=== PATIENT | male | born 1930 | race Caucasian/White ===

== ENCOUNTER 2021-08-11 17:44 | Inpatient (IN) | payer MEDICARE, BC ==
[~2021-08-11] VITALS: Ht 180.3 cm; Wt 83.6 kg
[2021-08-11 18:30] VITALS: BP 148/83
[2021-08-11] MEDS ORDERED: ondansetron/PF 4mg/2ml inj IV PRN (19:30)
[2021-08-11] MEDS ORDERED: magnesium 2GM in 50ml NS 50 ML IV PRN (19:30)
[2021-08-11] MEDS ORDERED: magnesium 4gm in 100ml NS 100 ML IV PRN (19:30)
[2021-08-11] MEDS ORDERED: HYDROcodone/acetaminophen 10/325mg tab PO PRN (19:30)
[2021-08-11] MEDS ORDERED: acetaminophen 325mg tablet PO PRN ×2 (19:30)
[2021-08-11] MEDS ORDERED: magnesium Cl slow-release 64mg tablet PO PRN (19:30)
[2021-08-11] MEDS ORDERED: morphine 2 MG/ML inj. syringe IV PRN ×2 (19:30)
[2021-08-11] MEDS ORDERED: potassium Cl 20 mEq SR tablet PO PRN ×2 (19:30)
[2021-08-11] MEDS ORDERED: potassium CL 10mEq/100ml bag 100 ML IV PRN (19:30)
[2021-08-11] MEDS ORDERED: PERFLUTREN PROTEIN-A MICROSPHR (Optison) 0.22 MG/ML 3ML VIAL IV ONE (19:40)
[2021-08-11] MEDS: ALBUTEROL INHALER 1 PUFF/90 MCG INHALER IH SCH ×2 (20:00→22:51)
[2021-08-11] MEDS: K and/or MAG REPLACEMENT MC SCH (20:00)
[2021-08-11] MEDS: normal saline 1000ml 1,000 ML IV SCH (20:02)
[2021-08-11] MEDS ORDERED: PERFLUTREN PROTEIN-A MICROSPHR (Optison) 0.22 MG/ML 3ML VIAL IV PRN (20:20)
[2021-08-11] MEDS ORDERED: APIX2.5T PO (20:56)
[2021-08-11] MEDS ORDERED: LOSA50TA64 PO (20:56)
[2021-08-11] MEDS ORDERED: COLC0.6T72 PO (20:56)
[2021-08-11] MEDS ORDERED: AMLO10TA13 PO (20:56)
[2021-08-11] MEDS ORDERED: LEVO150T8 PO (20:56)
[2021-08-11] MEDS ORDERED: FAMO20TA8 PO (20:56)
[2021-08-11] MEDS ORDERED: FINA5TAB11 PO (20:56)
[2021-08-11] MEDS ORDERED: temazepam 15mg capsule PO PRN (21:00)
[2021-08-11] MEDS: nicotine 14mg patch - 24hr TD SCH (21:12)
[2021-08-11] MEDS: dexamethasone 4mg/ml inj IV SCH (21:13)
[2021-08-11] MEDS ORDERED: famotidine 20mg tablet PO PRN (21:45)
[2021-08-11 22:00] VITALS: BP 124/90
[2021-08-11] MEDS ORDERED: LIDOcaine 2% 10ml TOPICAL JELLY (Urojet) TP ONE (22:00)
--- NOTE | 2021-08-11 22:00 | NUR ---
Placed fr 16 f/c with concentrated yellow urine return. Pt. tolerated the procedure with no incident-F/c draining to gravity. Addendum: 08/12/21 at 0040 by Angela Jhaveri RN Amended: Links added.
[2021-08-11 22:52] LABS: ABG BASE EXCESS 1.2 mmol/L (-2.0-2.0); ABG HCO3 26.6 mmol/L (22.0-26.0); ABG OXYGEN SATURATION 89.6 % (94-97); ABG PCO2 (T) 44.5 mmHg (35.0-48.0); ABG PO2 (T) 57.9 mmHg (75.0-100.0); ALLEN'S TEST POSITIVE; FCOHb 1.7 % (0.0-3.9); FLOW 8 L/min; FMetHb 0.3 % (0.0-1.5); FO2Hb 87.8 % (94-97); PATIENT TEMPERATURE 36.9; TOTAL HEMOGLOBIN 14.6 G/dl (14.0-18.0)
[2021-08-11 23:51] LABS: CLARITY,URINE CLEAR (Clear); COLOR,URINE YELLOW (Yellow); GLUCOSE, URINE NEGATIVE (Neg); KETONES,URINE TRACE mg/dl (Neg); LEUKOCYTE ESTERASE ,URINE NEGATIVE (Neg); NITRITES, URINE NEGATIVE (Neg); OCCULT BLOOD,URINE SMALL (Neg); PH,URINE 5.5 (4.8-8.0); PROTEIN,URINE 100 mg/dl (Neg); UROBILINOGEN,URINE 0.2 E.U/dL (0.2-1.0)
[2021-08-11 23:57] LABS: UA COLLECTION TYPE NON-SPECIFIED
[2021-08-11 23:58] LABS: BACTERIA,URINE FEW /HPF (Neg); RBC,URINE 0-2 /HPF (0-2); SQUAMOUS EPITHELIAL CELL,UR FEW /LPF (FEW); WBC,URINE 0-4 /HPF (0-4)
[2021-08-11 23:59] LABS: MUCUS STRANDS FEW /LPF (Neg)
[2021-08-12] MEDS: heparin, porcine 5000 units/ml vial SQ SCH ×3 (00:12→17:33)
[2021-08-12] MEDS: HYDROmorphone/PF 0.2 MG/ML SYRINGE IV PRN ×2 (00:18→19:30)
[2021-08-12 02:00] VITALS: BP 111/64
[2021-08-12] MEDS: ALBUTEROL INHALER 1 PUFF/90 MCG INHALER IH SCH ×6 (04:31→23:53)
[2021-08-12 06:00] VITALS: BP 119/77
[2021-08-12] MEDS: K and/or MAG REPLACEMENT MC SCH ×2 (08:00→19:16)
[2021-08-12] MEDS: losartan 50mg tablet PO SCH (08:14)
[2021-08-12] MEDS: amLODIPine 5mg tablet PO SCH (08:14)
[2021-08-12] MEDS: levoTHYROXINE 75mcg tablet PO SCH (08:14)
[2021-08-12] MEDS: dexamethasone 4mg/ml inj IV SCH ×2 (08:16→19:15)
[2021-08-12] MEDS: colchicine 0.6mg tablet PO SCH ×2 (08:16→19:15)
[2021-08-12] MEDS: nicotine 14mg patch - 24hr TD SCH (08:17)
[2021-08-12] MEDS: finasteride 5mg tablet PO SCH (08:18)
[2021-08-12 08:21] LABS: BASOPHILS % (AUTO) 0.2 % (0-1); EOSINOPHILS % (AUTO) 0.1 % (0-6); HEMATOCRIT 45.2 % (42.0-52.0); HEMOGLOBIN 14.4 g/dl (14.0-17.9); LYMPHOCYTES # (AUTO) 0.4 X10'3 (1.1-4.8); LYMPHOCYTES % (AUTO) 3.1 % (21-51); MEAN CORPUSCULAR HEMOGLOBIN 29.3 PG (27.0-31.0); MEAN CORPUSCULAR HGB CONC 31.8 g/dL (33.0-36.5); MEAN CORPUSCULAR VOLUME 92.1 FL (78-98); MEAN PLATELET VOLUME 10.5 FL (7.4-10.4); MONOCYTES # (AUTO) 0.2 X10'3 (0-0.9); NEUTROPHILS # (AUTO) 11.4 X10'3 (1.8-7.7); NEUTROPHILS % (AUTO) 94.6 % (42-75); PLATELET COUNT 93 X10'3 (140-440); RED BLOOD COUNT 4.91 X10'6 (4.70-6.10); RED CELL DISTRIBUTION WIDTH 16.4 % (11.5-14.5)
[2021-08-12 08:29] LABS: ALANINE AMINOTRANSFERASE 62 U/L (12-78); ALBUMIN 2.8 G/DL (3.4-5.0); ALBUMIN/GLOBULIN RATIO 0.7 (1.1-1.5); ALKALINE PHOSPHATASE 84 IU/L (46-116); ANION GAP 11 (8-16); ASPARTATE AMINO TRANSFERASE 53 U/L (10-37); BILIRUBIN,TOTAL 0.9 MG/DL (0.1-1.0); BLOOD UREA NITROGEN 17 MG/DL (7-18); BUN/CREATININE RATIO 18.7 (5.4-32.0); CALCIUM 8.7 MG/DL (8.5-10.1); CHLORIDE 103 MMOL/L (99-107); CREATININE 0.91 MG/DL (0.60-1.10); GLUCOSE 154 MG/DL (70-104); SODIUM 139 MMOL/L (135-145); TOTAL CARBON DIOXIDE 24.6 MMOL/L (24-32); eGFR 78 ML/MIN
[2021-08-12 08:32] LABS: POTASSIUM 3.7 MMOL/L (3.5-5.1)
[2021-08-12 08:39] LABS: ANISOCYTOSIS 1+; PLATELET ESTIMATE DECREASED
[2021-08-12 08:40] LABS: LARGE PLATELETS FEW
[2021-08-12] MEDS ORDERED: pneumococcal 23-VAL P-sac vacc 25 mcg/0.5ml vial IMVAC ONE (09:00)
[2021-08-12 10:00] VITALS: BP_SYST 111; BP_SYST 121; BP_DIAS 64; BP_DIAS 84
--- NOTE | 2021-08-12 12:46 | NUR ---
Age screen: Pt admitted s/p fall w/ left hip fx and Covid per EMR. Pt to go for L hip arthroplasty 1/ per MD note, may benefit from High protein diet ed s/p procedure. Pt also noted to have open wound on L kay, pending [facility] assessment. Currently on 8L high flow oxygen per documentation. On Regular diet, pending PO intake. No BM documented, no edema. Will continue to monitor. Addendum: 08/12/21 at [address] Amended: Links added.
[2021-08-12] MEDS: HYDROcodone/acetaminophen 5mg/325mg tablet PO PRN (15:00)
[2021-08-12] MEDS: normal saline 1000ml 1,000 ML IV SCH (15:30)
[2021-08-12 18:00] VITALS: BP 120/60
[2021-08-12 22:00] VITALS: BP 107/67
[2021-08-13] VITALS (12 sets, daily range): BP systolic 94–126; BP diastolic 58–82
[2021-08-13] MEDS: heparin, porcine 5000 units/ml vial SQ SCH ×3 (00:06→12:48)
[2021-08-13] MEDS: ALBUTEROL INHALER 1 PUFF/90 MCG INHALER IH SCH ×5 (04:45→20:39)
--- NOTE | 2021-08-13 06:50 | NUR ---
Problems reprioritized. Patient report given, questions answered & plan of care reviewed with ELEANOR Morgan.
[2021-08-13 07:17] LABS: HEMOGLOBIN 13.4 g/dl (14.0-17.9); LYMPHOCYTES # (AUTO) 0.3 X10'3 (1.1-4.8); MONOCYTES # (AUTO) 0.6 X10'3 (0-0.9); RED CELL DISTRIBUTION WIDTH 16.4 % (11.5-14.5)
[2021-08-13 07:19] LABS: BASOPHILS % (AUTO) 0.1 % (0-1); EOSINOPHILS % (AUTO) 0.1 % (0-6); HEMATOCRIT 41.4 % (42.0-52.0); MEAN CORPUSCULAR HEMOGLOBIN 29.7 PG (27.0-31.0); MEAN CORPUSCULAR HGB CONC 32.5 g/dL (33.0-36.5); MEAN CORPUSCULAR VOLUME 91.3 FL (78-98); MEAN PLATELET VOLUME 10.7 FL (7.4-10.4); MONOCYTES % (AUTO) 4.5 % (2-12); NEUTROPHILS # (AUTO) 13.2 X10'3 (1.8-7.7); NEUTROPHILS % (AUTO) 93.3 % (42-75); PLATELET COUNT 128 X10'3 (140-440); RED BLOOD COUNT 4.53 X10'6 (4.70-6.10); WHITE BLOOD COUNT 14.1 X10'3 (4.5-11.0)
[2021-08-13] MEDS: losartan 50mg tablet PO SCH (08:00)
[2021-08-13] MEDS: K and/or MAG REPLACEMENT MC SCH ×2 (08:00→20:00)
[2021-08-13] MEDS: amLODIPine 5mg tablet PO SCH (08:00)
[2021-08-13 08:31] LABS: ANISOCYTOSIS 1+; LARGE PLATELETS FEW; PLATELET ESTIMATE DECREASED
[2021-08-13 08:49] LABS: D-DIMER 0.75 MG/L FEU (0-0.50)
[2021-08-13] MEDS ORDERED: vancomycin 1,000mg inj ONE (08:49)
[2021-08-13] MEDS ORDERED: propofol inj 20 ML IV ONE (09:00)
[2021-08-13] MEDS ORDERED: fentaNYL/PF 50MCG/1 ML 2ML syringe ONE (09:00)
[2021-08-13] MEDS ORDERED: ePHEDrine 50MG/ML INJ. ONE (09:01)
[2021-08-13] MEDS ORDERED: ceFAZolin 1000mg inj ONE ×2 (09:18)
[2021-08-13] MEDS ORDERED: phenylephrine 10mg/ml inj. ONE (09:35)
[2021-08-13] MEDS ORDERED: tranexamic acid 1gm/0.7% sal. 100 ML IV ONE (09:35)
--- NOTE | 2021-08-13 09:45 | NUR ---
Mr Severino has been relocated to ICU room 2005. He continued to have an elevated respiratory rate, agitation and a lowered oxygen level. He has had a rapid response called. He has had an ABG drawn and evaluated. Efforts have been made to help him relax with Haldol and Ativan. The hospitalist assigned to his case was notified. He has had ICU charge visit the bedside at staff request to evaluate the patient two times in addition to her response for a rapid response evaluation. He was also evaluated by an ICU physician. It was determined that he would benefit from an ICU transfer to be given a sedative that would not be available on this level of care. These effort to increase his oxygen blood level as well as decrease his respiratory rate have been pursue the duration of this shift. his family was notified of the transfer Lesli Franco at [phone]. She was informed of the transfer and reassured that the current plan was not to intubate. She was the only constitution party listed as next of Kin to be notified on his facesheet. She reassured this science writer that she would inform his daughter of the flowers in status. Addendum: 08/13/21 at 0958 by Lucille Salas RN above note on incorrect patient Addendum: 08/13/21 at 1137 by Lucille Salas RN The above not is on the incorrect patient
--- NOTE | 2021-08-13 10:55 | NUR ---
Received report from Dr Gan, Anesthesiologist at bedside in operating room for recovery of patient. pt is awake and pleasantly confused. Pt is oriented to person and year. He also knows the preseident but does not know his location or situation. Pt denies pain, left hip with island dressing clean dry and intact, knee immobilizer in place. left foot cold with poor FLIGHT NURSE, warm blankets and mar hugger applied. vital signs stable, pt remains in atrial fib, zamora catheter to gravity drainage with yellow urine in bag. Addendum: 08/13/21 at 1306 by Kary Salas RN Amended: Links added.
[2021-08-13] MEDS ORDERED: meperidine/PF 25mg/ml syringe IV PRN ×3 (11:05)
[2021-08-13] MEDS ORDERED: ondansetron/PF 4mg/2ml inj IV PRN (11:05)
[2021-08-13] MEDS ORDERED: morphine 4 MG/ML inj SYRINge IV PRN (11:05)
[2021-08-13] MEDS ORDERED: morphine 2 MG/ML inj. syringe IV PRN (11:05)
[2021-08-13] MEDS ORDERED: proCHLORperazine 10 MG/2 ml inj IV PRN (11:05)
[2021-08-13] MEDS ORDERED: ringers solution, lacted 1,000 ML IV SCH (11:05)
[2021-08-13] MEDS: normal saline 1000ml 1,000 ML IV SCH (11:30)
--- NOTE | 2021-08-13 11:40 | NUR ---
left leg reassessed after warming, toe and foot color and circulation improved, pulses +1 palpable. bilateral lower extremities remain donna colored from foot to knees. Report called to receiving nurse Lucille WESBTER. Transferred via bed with oxygen, no belongings, receiving RN at bedside to receive pt. Bed low locked, side rails up, call light given, pt attached to wall o2. . Special Issues communicated to receiving nurse. - spinal status and level communicated to nurse. Addendum: 08/13/21 at 1316 by Kary Salas RN Amended: Links added.
--- NOTE | 2021-08-13 11:45 | NUR ---
Return from OR no s/s of distress or discomfort. He deinies pain and is both pleasant and cooperative. made aware of his return and he speaks with her on the phone as well.
[2021-08-13] MEDS: levoTHYROXINE 75mcg tablet PO SCH (12:47)
[2021-08-13] MEDS: nicotine 14mg patch - 24hr TD SCH (12:48)
[2021-08-13] MEDS: colchicine 0.6mg tablet PO SCH ×2 (12:48→20:37)
[2021-08-13] MEDS: finasteride 5mg tablet PO SCH (12:48)
[2021-08-13] MEDS: dexamethasone 6 MG/D5W 100ml IV.soln (total 101.5ml) IV SCH ×4 (12:49→20:37)
[2021-08-13 13:27] LABS: ALANINE AMINOTRANSFERASE 59 U/L (12-78); ALBUMIN 2.8 G/DL (3.4-5.0); ALBUMIN/GLOBULIN RATIO 0.8 (1.1-1.5); ALKALINE PHOSPHATASE 78 IU/L (46-116); ANION GAP 7 (8-16); ASPARTATE AMINO TRANSFERASE 55 U/L (10-37); BILIRUBIN,TOTAL 0.5 MG/DL (0.1-1.0); BLOOD UREA NITROGEN 27 MG/DL (7-18); BUN/CREATININE RATIO 28.1 (5.4-32.0); CALCIUM 8.7 MG/DL (8.5-10.1); CHLORIDE 105 MMOL/L (99-107); CREATININE 0.96 MG/DL (0.60-1.10); GLUCOSE 137 MG/DL (70-104); POTASSIUM 3.7 MMOL/L (3.5-5.1); SODIUM 142 MMOL/L (135-145); TOTAL CARBON DIOXIDE 29.7 MMOL/L (24-32); TOTAL PROTEIN 6.3 G/DL (6.4-8.2); eGFR 74 ML/MIN
[2021-08-13 13:37] LABS: C-REACTIVE PROTEIN 7.24 MG/DL (0.0-0.5); MAGNESIUM 2.1 MG/DL (1.5-2.4); PHOSPHORUS 3.3 MG/DL (2.3-4.5)
--- NOTE | 2021-08-13 13:55 | NUR ---
08/13/21@1100: Wound care in for skin assessment. The patient is currently in the OR. Addendum: 08/13/21 at 1356 by Shannan Prater RN Amended: Links added.
[2021-08-13] MEDS: HYDROmorphone/PF 0.2 MG/ML SYRINGE IV PRN (14:03)
[2021-08-13] MEDS ORDERED: diltiazem 5mg/ml 5ml inj. IV ONE (15:45)
[2021-08-13] MEDS: ceFAZolin/D5W- 1GM premix 50 ML IV SCH (16:33)
[2021-08-13] MEDS: diltiazem-NS 100mg/100ml 100 ML IV SCH (17:01)
[2021-08-13] MEDS: HYDROcodone/acetaminophen 5mg/325mg tablet PO PRN (17:02)
--- NOTE | 2021-08-13 17:45 | NUR ---
Mr Severino has been assessed as indicated. He has been noted to be both pleasant and cooperative. He is pleasantly confused and often sees objects, people and animals that are not there. He has gone to OR for hip repair via Left lesley Orthoplasty per PACU nurse (Jamee). He had a spinal for anesthesia and tolerated the surgery well. he has an elevated heart rate. He has been give IV Cardizem push once and is now on Cardizem drip at 5ml hr. He has been successfully treated for pain x2 this shift. He has spoken to his family since he returned for OR and has tolerated his lunch well. He has a Syed draining adequate amounts of cleat yellow urine. He tolerates IVF well and is presently resting quietly
--- NOTE | 2021-08-13 18:47 | NUR ---
Problems reprioritized. Patient report given, questions answered & plan of care reviewed with CURLY WEBSTER.
[2021-08-13] MEDS: apixaban 5mg tablet PO SCH (20:37)
[2021-08-14] MEDS: ALBUTEROL INHALER 1 PUFF/90 MCG INHALER IH SCH ×7 (00:08→23:43)
[2021-08-14 02:00] VITALS: BP 115/79
[2021-08-14] MEDS: ceFAZolin/D5W- 1GM premix 50 ML IV SCH (02:53)
--- NOTE | 2021-08-14 05:49 | NUR ---
patient in bed asleep monitor for pain duieng shift patient denies. mobilizer to left leg with dressing in place site intact. Morgan solis in progress vs monitor closely qhr tolerated well HR 103 at this time. will continue to monitor.
[2021-08-14 06:00] VITALS: BP 119/80
[2021-08-14] MEDS: normal saline 1000ml 1,000 ML IV SCH (06:28)
[2021-08-14 07:43] LABS: BASOPHILS % (AUTO) 0.1 % (0-1); EOSINOPHILS % (AUTO) 0 % (0-6); HEMATOCRIT 38.6 % (42.0-52.0); HEMOGLOBIN 12.6 g/dl (14.0-17.9); LYMPHOCYTES # (AUTO) 0.3 X10'3 (1.1-4.8); LYMPHOCYTES % (AUTO) 2.3 % (21-51); MEAN CORPUSCULAR HEMOGLOBIN 29.3 PG (27.0-31.0); MEAN CORPUSCULAR HGB CONC 32.7 g/dL (33.0-36.5); MEAN CORPUSCULAR VOLUME 89.6 FL (78-98); MEAN PLATELET VOLUME 10.6 FL (7.4-10.4); MONOCYTES # (AUTO) 0.8 X10'3 (0-0.9); MONOCYTES % (AUTO) 6.4 % (2-12); NEUTROPHILS # (AUTO) 10.8 X10'3 (1.8-7.7); NEUTROPHILS % (AUTO) 91.2 % (42-75); PLATELET COUNT 130 X10'3 (140-440); RED BLOOD COUNT 4.31 X10'6 (4.70-6.10); RED CELL DISTRIBUTION WIDTH 16.5 % (11.5-14.5); WHITE BLOOD COUNT 11.9 X10'3 (4.5-11.0)
[2021-08-14] MEDS: dexamethasone 6 MG/D5W 100ml IV.soln (total 101.5ml) IV SCH ×4 (07:51→19:59)
[2021-08-14] MEDS: nicotine 14mg patch - 24hr TD SCH (07:52)
[2021-08-14] MEDS: levoTHYROXINE 75mcg tablet PO SCH (07:52)
[2021-08-14] MEDS: finasteride 5mg tablet PO SCH (07:53)
[2021-08-14] MEDS: losartan 50mg tablet PO SCH (07:53)
[2021-08-14] MEDS: apixaban 5mg tablet PO SCH ×2 (07:53→19:58)
[2021-08-14] MEDS: colchicine 0.6mg tablet PO SCH ×2 (07:54→19:58)
[2021-08-14] MEDS: K and/or MAG REPLACEMENT MC SCH ×2 (08:00→20:00)
[2021-08-14 08:02] LABS: ALANINE AMINOTRANSFERASE 63 U/L (12-78); ALBUMIN/GLOBULIN RATIO 0.8 (1.1-1.5); ALKALINE PHOSPHATASE 82 IU/L (46-116); ANION GAP 10 (8-16); ASPARTATE AMINO TRANSFERASE 71 U/L (10-37); BILIRUBIN,TOTAL 0.6 MG/DL (0.1-1.0); BLOOD UREA NITROGEN 29 MG/DL (7-18); BUN/CREATININE RATIO 28.4 (5.4-32.0); C-REACTIVE PROTEIN 5.44 MG/DL (0.0-0.5); CALCIUM 9.1 MG/DL (8.5-10.1); CHLORIDE 105 MMOL/L (99-107); CREATININE 1.02 MG/DL (0.60-1.10); GLUCOSE 158 MG/DL (70-104); MAGNESIUM 2.2 MG/DL (1.5-2.4); PHOSPHORUS 3.1 MG/DL (2.3-4.5); POTASSIUM 3.6 MMOL/L (3.5-5.1); SODIUM 143 MMOL/L (135-145); TOTAL CARBON DIOXIDE 28.2 MMOL/L (24-32); TOTAL PROTEIN 6.6 G/DL (6.4-8.2); eGFR 69 ML/MIN
[2021-08-14 09:15] LABS: D-DIMER 0.77 MG/L FEU (0-0.50)
[2021-08-14 10:00] VITALS: BP 126/66
[2021-08-14] MEDS: diltiazem-NS 100mg/100ml 100 ML IV SCH (10:55)
--- NOTE | 2021-08-14 12:15 | NUR ---
Patient puul out the zamora catheter . Dr. tong was notified and ordered using urinal.
--- NOTE | 2021-08-14 12:50 | NUR ---
WOUND INFECTION EDUCATION PROVIDED BY WOUND CARE 1. Patient instructed to call their primary doctor, or go the ED immediately if any of the following symptoms occur: * Increased pain in wound * Increase in drainage from the wound * Redness in the skin surrounding the wound * Warmth in the skin surrounding the wound * Bleeding from the wound * Temperature of 101 or greater 2. If any of these occur while in the hospital tell a nurse immediately. PRESSURE ULCER EDUCATION: DEFINITION: A pressure ulcer is an area of skin that breaks down when you stay in one position too long. The constant pressure against the skin reduces the blood flow to that area and the affected tissue dies. CAUSES: "Being bedridden or in a wheelchair "Fragile skin "Having a chronic condition, such as diabetes or vascular disease "Inability to move certain parts of your body without assistance "Older age "Incontinence of urine or stool SYMPTOMS: "A reddened area that DOES NOT turn white when pressed on - this can be the beginning of a pressure ulcer "A blister, deep sore or a crater - these can be advanced pressure ulcers FIRST AID: "Relieve the pressure on this area "Keep the area clean and dry "Call your primary doctor if you see any of the above symptoms "DO NOT massage the area "DO NOT use a donut shaped or ring shaped pillow- these actually interfere with the blood flow and cause complications PREVENTION: "Check for pressure ulcers everyday "Change position at least every two hours to relieve pressure "Use items that help relieve pressure- pillows, sheepskin, foam padding, and powders. "Keep skin clean and dry "Eat healthy well balanced meals "Exercise daily IF YOU SEE ANY OF THESE SYMPTOMS WHILE IN THE HOSPITAL - TELL YOUR NURSE IMMEDIATELY. IF YOU SEE ANY OF THESE SYMPTOMS WHILE AT HOME OR HAVE ANY QUESTIONS OR CONCERNS ABOUT PRESSURE ULCERS - CALL YOUR PRIMARY DOCTOR IMMEDIATELY. Addendum: 08/14/21 at 1250 by Shannan Prater RN Amended: Links added.
[2021-08-14 14:00] VITALS: BP 112/77
[2021-08-14 18:00] VITALS: BP 130/87
[2021-08-14 22:00] VITALS: BP 118/76
[2021-08-14] MEDS: HYDROcodone/acetaminophen 5mg/325mg tablet PO PRN (23:32)
[2021-08-15 02:00] VITALS: BP 113/75
[2021-08-15] MEDS: ALBUTEROL INHALER 1 PUFF/90 MCG INHALER IH SCH ×3 (03:23→11:54)
[2021-08-15] MEDS: normal saline 1000ml 1,000 ML IV SCH (03:40)
[2021-08-15] MEDS: diltiazem-NS 100mg/100ml 100 ML IV SCH (05:43)
[2021-08-15 06:00] VITALS: BP 124/88
[2021-08-15 07:52] LABS: BASOPHILS % (AUTO) 0.1 % (0-1); EOSINOPHILS % (AUTO) 0 % (0-6); HEMATOCRIT 40.2 % (42.0-52.0); HEMOGLOBIN 13.1 g/dl (14.0-17.9); LYMPHOCYTES # (AUTO) 0.5 X10'3 (1.1-4.8); LYMPHOCYTES % (AUTO) 3.9 % (21-51); MEAN CORPUSCULAR HEMOGLOBIN 29.5 PG (27.0-31.0); MEAN CORPUSCULAR HGB CONC 32.5 g/dL (33.0-36.5); MEAN CORPUSCULAR VOLUME 90.9 FL (78-98); MEAN PLATELET VOLUME 10.5 FL (7.4-10.4); MONOCYTES # (AUTO) 0.6 X10'3 (0-0.9); MONOCYTES % (AUTO) 4.7 % (2-12); NEUTROPHILS # (AUTO) 10.9 X10'3 (1.8-7.7); NEUTROPHILS % (AUTO) 91.3 % (42-75); PLATELET COUNT 133 X10'3 (140-440); RED BLOOD COUNT 4.42 X10'6 (4.70-6.10); RED CELL DISTRIBUTION WIDTH 16.6 % (11.5-14.5); WHITE BLOOD COUNT 11.9 X10'3 (4.5-11.0)
[2021-08-15] MEDS: K and/or MAG REPLACEMENT MC SCH (08:00)
[2021-08-15] MEDS: levoTHYROXINE 75mcg tablet PO SCH (08:21)
[2021-08-15] MEDS: nicotine 14mg patch - 24hr TD SCH (08:21)
[2021-08-15] MEDS: apixaban 5mg tablet PO SCH (08:22)
[2021-08-15] MEDS: losartan 50mg tablet PO SCH (08:22)
[2021-08-15] MEDS: dexamethasone 6 MG/D5W 100ml IV.soln (total 101.5ml) IV SCH ×2 (08:23)
[2021-08-15] MEDS: finasteride 5mg tablet PO SCH (08:23)
[2021-08-15] MEDS: colchicine 0.6mg tablet PO SCH (08:23)
[2021-08-15 08:35] LABS: ALANINE AMINOTRANSFERASE 90 U/L (12-78); ALBUMIN 2.9 G/DL (3.4-5.0); ALBUMIN/GLOBULIN RATIO 0.9 (1.1-1.5); ALKALINE PHOSPHATASE 103 IU/L (46-116); ANION GAP 10 (8-16); ASPARTATE AMINO TRANSFERASE 96 U/L (10-37); BILIRUBIN,TOTAL 0.8 MG/DL (0.1-1.0); BLOOD UREA NITROGEN 25 MG/DL (7-18); BUN/CREATININE RATIO 22.5 (5.4-32.0); C-REACTIVE PROTEIN 3.46 MG/DL (0.0-0.5); CALCIUM 8.7 MG/DL (8.5-10.1); CHLORIDE 105 MMOL/L (99-107); CREATININE 1.11 MG/DL (0.60-1.10); GLUCOSE 161 MG/DL (70-104); MAGNESIUM 2.2 MG/DL (1.5-2.4); PHOSPHORUS 3.9 MG/DL (2.3-4.5); POTASSIUM 4.1 MMOL/L (3.5-5.1); SODIUM 142 MMOL/L (135-145); TOTAL CARBON DIOXIDE 27.5 MMOL/L (24-32); TOTAL PROTEIN 6.3 G/DL (6.4-8.2); eGFR 62 ML/MIN
[2021-08-15 09:03] LABS: ANISOCYTOSIS 1+; LARGE PLATELETS FEW; PLATELET ESTIMATE DECREASED
[2021-08-15 09:38] LABS: D-DIMER 1.12 MG/L FEU (0-0.50)
[2021-08-15 10:00] VITALS: BP 124/82
--- NOTE | 2021-08-15 14:40 | NUR ---
PATIENT DISCHARGE TO [facility] TO CONTINUE TREATMENT AND REHABILITATION. pATIENT WAS TRANSPORTED BY AMBULANCE ALERT AND ORIENT. THE FACILITY AND THE FAMILY WAS NOTIFIED TO HIS TRANSFER.
== END 2021-08-15 14:50 | DRG 521 ==
LOC: ORTHO 4S 18:58
PROVIDERS: ADMIT Family Medicine; ATTEND Family Medicine
PROC: 5A0935A Assistance with Respiratory Ventilation, Less than 24 Consecutive Hours, High Flow/Velocity Cannula (ICD-10-PCS; 2021-08-12)
PROC: 5A0935A Assistance with Respiratory Ventilation, Less than 24 Consecutive Hours, High Flow/Velocity Cannula (ICD-10-PCS; 2021-08-13)
PROC: 0SRS0JZ Replacement of Left Hip Joint, Femoral Surface with Synthetic Substitute, Open Approach (ICD-10-PCS; principal; 2021-08-13 09:09)
DX: S72.002A Fracture of unspecified part of neck of left femur, initial encounter for closed fracture (principal); U07.1 COVID-19; L97.929 Non-pressure chronic ulcer of unspecified part of left lower leg with unspecified severity; Z66 Do not resuscitate; I48.91 Unspecified atrial fibrillation; E87.6 Hypokalemia; I73.9 Peripheral vascular disease, unspecified; J44.9 Chronic obstructive pulmonary disease, unspecified; K21.9 Gastro-esophageal reflux disease without esophagitis; R74.01 Elevation of levels of liver transaminase levels; D69.6 Thrombocytopenia, unspecified; W18.39XA Other fall on same level, initial encounter; I10 Essential (primary) hypertension; F17.210 Nicotine dependence, cigarettes, uncomplicated; Z79.01 Long term (current) use of anticoagulants; Z86.73 Personal history of transient ischemic attack (TIA), and cerebral infarction without residual deficits; Z87.11 Personal history of peptic ulcer disease; Z28.21 Immunization not carried out because of patient refusal; Y93.89 Activity, other specified; Y92.098 Other place in other non-institutional residence as the place of occurrence of the external cause; Y99.8 Other external cause status; Z91.041 Radiographic dye allergy status; Z79.899 Other long term (current) drug therapy
CPT/HCPCS: 36415; 36600; 72170; 73501; 80053; 81001; 82803; 83735; 84100; 84443; 85008; 85018; 85025; 85379; 86140; 87040; 87081; 87635; 93005; 93308; 94640; 94760; 97110; 97161; 97530; A4618; A6446; A6454; A7000; C1776; G0378; J0690; J1100; J1170; J1644; J2370; J2704; J3010; J3370; J3490; J7030; J7060; J7120